=== PATIENT | male | born 1940 | race Caucasian/White ===

== ENCOUNTER 2018-04-29 19:10 | Inpatient (IN) | payer MEDICARE, BC ==
[~2018-04-29] VITALS: Ht 175.3 cm; Wt 82.2 kg
[~2018-04-29 19:10] MED LIST: ALBU8.5H8 INH; ASPI-1265 PO; ATOR40TA PO; BECL7.3A INH; CYAN100097 PO; FERR325T32 PO; IPRA3AMP9 NEB; MAGN400C PO; MONT10TA21 PO; SPIIN INH; UBID1CAP54 PO; VALS160T2 PO; VERA240C2 PO
[2018-04-29 19:56] LABS: BASOPHILS % (AUTO) 0.1 % (0-1); EOSINOPHILS # (AUTO) 0.2 X10'3 (0-0.9); EOSINOPHILS % (AUTO) 2.6 % (0-6); HEMOGLOBIN 8.9 g/dl (14.0-17.9); LYMPHOCYTES # (AUTO) 0.6 X10'3 (1.1-4.8); LYMPHOCYTES % (AUTO) 6.5 % (21-51); MEAN CORPUSCULAR HGB CONC 34.4 % (33.0-36.5); MEAN CORPUSCULAR VOLUME 92.9 FL (78-98); MONOCYTES # (AUTO) 0.8 X10'3 (0-0.9); MONOCYTES % (AUTO) 8.8 % (2-12); NEUTROPHILS # (AUTO) 7.1 X10'3 (1.8-7.7); PLATELET COUNT 143 X10'3 (140-440); RED BLOOD COUNT 2.79 X10'6 (4.70-6.10); RED CELL DISTRIBUTION WIDTH 15.4 % (11.5-14.5); WHITE BLOOD COUNT 8.6 X10'3 (4.5-11.0)
[2018-04-29 20:09] LABS: ALANINE AMINOTRANSFERASE 23 U/L (12-78); ALBUMIN 3.4 G/DL (3.4-5.0); ALKALINE PHOSPHATASE 77 IU/L (46-116); ANION GAP 14 (8-16); ASPARTATE AMINO TRANSFERASE 30 U/L (10-37); BILIRUBIN,TOTAL 1.7 MG/DL (0.1-1.0); BLOOD UREA NITROGEN 38 MG/DL (7-18); BUN/CREATININE RATIO 18.8 (5.4-32.0); CALCIUM 8.1 MG/DL (8.5-10.1); CHLORIDE 96 MMOL/L (99-107); CREATININE 2.02 MG/DL (0.60-1.10); GLUCOSE 115 MG/DL (70-104); POTASSIUM 4.8 MMOL/L (3.5-5.1); SODIUM 133 MMOL/L (135-145); TOTAL CARBON DIOXIDE 22.9 MMOL/L (24-32); TOTAL PROTEIN 6.7 G/DL (6.4-8.2); eGFR 32 ML/MIN
[2018-04-29] MEDS ORDERED: LIDOcaine 2% 10ml TOPICAL JELLY (Urojet) MM ONE (20:15)
[2018-04-29 20:19] LABS: PARTIAL THROMBOPLASTIN TIME 26 SECONDS (22-32); PROTHROMBIN TIME 10.6 SECONDS (9.0-12.0)
[2018-04-29] MEDS ORDERED: methylPREDNISolone sod succ 125mg/2ml vial IV ONE (20:20)
[2018-04-29] MEDS ORDERED: ipratropium/albuterol 3ml nebule NEB ONE (20:20)
[2018-04-29] MEDS ORDERED: normal saline 1000ML IV soln IVB ONE ×2 (20:20)
[2018-04-29] MEDS ORDERED: levoFLOXACIN-Levaquin 750MG/D5 150 ML IV STA (20:20)
[2018-04-29 20:52] LABS: TROPONIN I < 0.04 NG/ML (0.0-0.05)
[2018-04-29] MEDS ORDERED: temazepam 15mg capsule PO PRN (21:00)
[2018-04-29 21:19] LABS: CLARITY,URINE CLEAR (Clear); COLOR,URINE YELLOW (Yellow); GLUCOSE, URINE NEGATIVE (Neg); KETONES,URINE TRACE mg/dl (Neg); LEUKOCYTE ESTERASE ,URINE NEGATIVE (Neg); NITRITES, URINE NEGATIVE (Neg); OCCULT BLOOD,URINE NEGATIVE (Neg); PH,URINE 5.5 (4.8-8.0); PROTEIN,URINE NEGATIVE (Neg); UROBILINOGEN,URINE 0.2 E.U/dL (0.2-1.0)
[2018-04-29] MEDS ORDERED: albuterol 2.5 mg/0.5ml nebule NEB ONE (21:20)
[2018-04-29 21:22] LABS: UA COLLECTION TYPE FOLEY CATH
[2018-04-29] MEDS ORDERED: albuterol 2.5 MG/3 ML nebule NEB ONE (22:00)
[2018-04-29] MEDS ORDERED: magnesium hydroxide 30ml (MOM) UD suspension PO PRN (22:50)
[2018-04-29] MEDS ORDERED: ondansetron/PF 4mg/2ml inj IV PRN (22:50)
[2018-04-29] MEDS ORDERED: albuterol 2.5 MG/3 ML nebule NEB PRN (22:50)
[2018-04-29] MEDS ORDERED: HYDROcodone/acetaminophen 5mg/325mg tablet PO PRN (22:50)
[2018-04-29] MEDS ORDERED: mag hydrox/Alum hydrox/simeth 30ml oral suspension PO PRN (22:50)
[2018-04-29] MEDS ORDERED: acetaminophen 325mg tablet PO PRN ×2 (22:50)
[2018-04-29] MEDS: HYDROcodone/acetaminophen 10/325mg tab PO PRN (23:09)
[2018-04-29] MEDS: normal saline 1000ml 1,000 ML IV SCH (23:12)
--- NOTE | 2018-04-29 23:53 | NUR ---
Informed ER MD patient had mckoy cathiter placed. Verbal order maintain mckoy per protocol.
--- NOTE | 2018-04-30 01:32 | NUR ---
Patient transfered to hospital bed.
--- NOTE | 2018-04-30 01:33 | NUR ---
pt placed on hospital bed. awaiting ipa. RT at bedside now , pt getting svn now. stable vs, afebrile. pt is polite and cooperative with all care. has gone home for the night.
[2018-04-30] MEDS: ipratropium/albuterol 3ml nebule NEB SCH ×6 (02:56→23:23)
--- NOTE | 2018-04-30 06:57 | NUR ---
Patient in room ED 12. I have received report from OPEN END SPINNING OPERATOR and had the opportunity to ask questions and assume patient care. Awaiting patient
[2018-04-30 07:15] VITALS: BP 126/60
--- NOTE | 2018-04-30 07:15 | NUR ---
Patient arrived to floor.
[2018-04-30] MEDS: normal saline 1000ml 1,000 ML IV SCH ×2 (08:15→17:15)
[2018-04-30] MEDS: enoxaparin 40mg/0.4ml syringe SUBCUT SCH (08:15)
[2018-04-30 09:42] LABS: BASOPHILS % (AUTO) 0 % (0-1); EOSINOPHILS % (AUTO) 0.8 % (0-6); HEMATOCRIT 25.4 % (42.0-52.0); HEMOGLOBIN 8.9 g/dl (14.0-17.9); LYMPHOCYTES # (AUTO) 0.2 X10'3 (1.1-4.8); LYMPHOCYTES % (AUTO) 3.2 % (21-51); MEAN CORPUSCULAR HEMOGLOBIN 32.8 PG (27.0-31.0); MEAN CORPUSCULAR HGB CONC 34.9 % (33.0-36.5); MEAN PLATELET VOLUME 7.9 FL (7.4-10.4); MONOCYTES # (AUTO) 0.2 X10'3 (0-0.9); MONOCYTES % (AUTO) 3.6 % (2-12); NEUTROPHILS # (AUTO) 5.6 X10'3 (1.8-7.7); NEUTROPHILS % (AUTO) 92.4 % (42-75); PLATELET COUNT 112 X10'3 (140-440); RED CELL DISTRIBUTION WIDTH 15.2 % (11.5-14.5); WHITE BLOOD COUNT 6.1 X10'3 (4.5-11.0)
[2018-04-30] MEDS ORDERED: HYDR-3972 PO (09:46)
[2018-04-30 09:50] LABS: ALBUMIN 3.2 G/DL (3.4-5.0); ANION GAP 9 (8-16); BLOOD UREA NITROGEN 27 MG/DL (7-18); BUN/CREATININE RATIO 19.4 (5.4-32.0); CALCIUM 8.2 MG/DL (8.5-10.1); CHLORIDE 104 MMOL/L (99-107); CREATININE 1.39 MG/DL (0.60-1.10); POTASSIUM 4.4 MMOL/L (3.5-5.1); SODIUM 139 MMOL/L (135-145); TOTAL CARBON DIOXIDE 25.8 MMOL/L (24-32); eGFR 50 ML/MIN
[2018-04-30 10:36] LABS: GLUCOSE 124 MG/DL (70-104)
[2018-04-30 11:22] VITALS: BP 109/58
[2018-04-30] MEDS: HYDROcodone/acetaminophen 10/325mg tab PO PRN ×2 (15:30→19:44)
--- NOTE | 2018-04-30 15:42 | NUR ---
Ruiz removed per MD order.
--- NOTE | 2018-04-30 17:11 | NUR ---
patient o2 sat 91 on RA. walked patient to hallway and back, patient dropped to 82%. patient recovered to 90% on room air when resting and up to 94%with 1L o2. Dr. Wright notified.
[2018-04-30] MEDS ORDERED: predniSONE 20 mg tablet PO ONE (17:25)
--- NOTE | 2018-04-30 18:25 | NUR ---
Problems reprioritized. Patient report given, questions answered & plan of care reviewed with JUAN Paulino.
--- NOTE | 2018-04-30 18:26 | NUR ---
Patient in room [facility]. I have received report from ERICK MARTINEZ and had the opportunity to ask questions and assume patient care.
[2018-04-30 19:00] VITALS: BP 113/60
[2018-05-01] VITALS: BP 123/67
[2018-05-01] MEDS: ipratropium/albuterol 3ml nebule NEB SCH ×3 (03:01→11:50)
[2018-05-01 06:02] LABS: BASOPHILS % (AUTO) 0 % (0-1); EOSINOPHILS # (AUTO) 0.1 X10'3 (0-0.9); EOSINOPHILS % (AUTO) 0.7 % (0-6); HEMATOCRIT 22.8 % (42.0-52.0); HEMOGLOBIN 7.9 g/dl (14.0-17.9); LYMPHOCYTES # (AUTO) 0.4 X10'3 (1.1-4.8); LYMPHOCYTES % (AUTO) 6.3 % (21-51); MEAN CORPUSCULAR HEMOGLOBIN 32.8 PG (27.0-31.0); MEAN CORPUSCULAR HGB CONC 34.7 % (33.0-36.5); MEAN CORPUSCULAR VOLUME 94.5 FL (78-98); MEAN PLATELET VOLUME 8.1 FL (7.4-10.4); MONOCYTES # (AUTO) 0.5 X10'3 (0-0.9); MONOCYTES % (AUTO) 7.7 % (2-12); NEUTROPHILS # (AUTO) 5.9 X10'3 (1.8-7.7); NEUTROPHILS % (AUTO) 85.3 % (42-75); PLATELET COUNT 111 X10'3 (140-440); RED BLOOD COUNT 2.41 X10'6 (4.70-6.10); RED CELL DISTRIBUTION WIDTH 15.2 % (11.5-14.5); WHITE BLOOD COUNT 6.9 X10'3 (4.5-11.0)
[2018-05-01 06:03] LABS: ANION GAP 8 (8-16); BLOOD UREA NITROGEN 24 MG/DL (7-18); BUN/CREATININE RATIO 21.2 (5.4-32.0); CALCIUM 8.3 MG/DL (8.5-10.1); CHLORIDE 104 MMOL/L (99-107); CREATININE 1.13 MG/DL (0.60-1.10); GLUCOSE 108 MG/DL (70-104); SODIUM 139 MMOL/L (135-145); TOTAL CARBON DIOXIDE 26.9 MMOL/L (24-32); eGFR 63 ML/MIN
--- NOTE | 2018-05-01 06:32 | NUR ---
Problems reprioritized. Patient report given, questions answered & plan of care reviewed with GREGORY MARTINEZ.
[2018-05-01 07:00] VITALS: BP 159/69
--- NOTE | 2018-05-01 07:10 | NUR ---
RECEIVED REPORT FROM BILLY MARTINEZ
[2018-05-01] MEDS ORDERED: predniSONE 20 mg tablet PO SCH (08:00)
[2018-05-01] MEDS: enoxaparin 40mg/0.4ml syringe SUBCUT SCH (08:06)
--- NOTE | 2018-05-01 10:54 | NUR ---
Dr. Greene stated pt is ok for discharge from surgical standpoint.
[2018-05-01 11:00] VITALS: BP 163/82
[2018-05-01] MEDS ORDERED: ipratropium/albuterol 3ml nebule NEB PRN (12:30)
[2018-05-01] MEDS ORDERED: non-formulary drug (Albuterol Sulfate (Proair Hfa) 2 PUFFS) INH PRN (12:30)
[2018-05-01] MEDS ORDERED: HYDROcodone/acetaminophen 10/325mg tab PO PRN (12:30)
[2018-05-01] MEDS ORDERED: PRED10TA23 PO (12:39)
[2018-05-01] MEDS ORDERED: LEVO500T2 PO (12:39)
[2018-05-01] MEDS ORDERED: verapamil SR 120mg (sust. release) tab PO ONE (12:40)
--- NOTE | 2018-05-01 12:59 | NUR ---
Mandy consult: Patient's documented PO intake 25% on 04/30, however noted that current documented intake is 75% on regular diet meeting nutrient needs. Pt with no documented significant decrease in muscle strength or edema. Pt currently does not meet criteria for malnutrition. Will continue to follow. Addendum: 05/01/18 at [address] Amended: Links added.
[2018-05-01] MEDS ORDERED: levoFLOXACIN 500mg tablet PO SCH (20:00)
[2018-05-01] MEDS ORDERED: BUDESONIDE 0.25 MG/2 ML AMPUL.NEB IH SCH (20:00)
[2018-05-01] MEDS ORDERED: aspirin 81mg tab.chew PO SCH (21:00)
[2018-05-02] MEDS ORDERED: atorvastatin 10mg tablet PO SCH (08:00)
[2018-05-02] MEDS ORDERED: non-formulary drug (Ubidecarenone/Vit E Acetate (Co Q-10 100 Mg Softgel) 1 EACH) PO SCH (08:00)
[2018-05-02] MEDS ORDERED: non-formulary drug (Tiotropium Bromide (SPIRIVA inhaler) 1 CAP) INH SCH (08:00)
[2018-05-02] MEDS ORDERED: montelukast 10mg tablet PO SCH (08:00)
[2018-05-02] MEDS ORDERED: magnesium oxide 400mg tablet PO SCH (08:00)
[2018-05-02] MEDS ORDERED: cyanocobalamin 500mcg tablet PO SCH (08:00)
[2018-05-02] MEDS ORDERED: losartan 50mg tablet PO SCH (08:00)
[2018-05-02] MEDS ORDERED: verapamil SR 120mg (sust. release) tab PO SCH (21:00)
== END 2018-05-01 14:08 | disposition home or self-care (01) | DRG 683 ==
LOC: ER 19:10 → ED HOLD 22:49 → EDBEDREQDT 04-30 07:12 → SUR 3N 04-30 07:20
PROVIDERS: ADMIT Hospitalist; ATTEND Internal Medicine
DX: N17.9 Acute kidney failure, unspecified (principal); J44.1 Chronic obstructive pulmonary disease with (acute) exacerbation; E87.1 Hypo-osmolality and hyponatremia; E86.0 Dehydration; N28.9 Disorder of kidney and ureter, unspecified; R33.9 Retention of urine, unspecified; Z80.3 Family history of malignant neoplasm of breast; Z86.73 Personal history of transient ischemic attack (TIA), and cerebral infarction without residual deficits; Z88.8 Allergy status to other drugs, medicaments and biological substances; Z79.899 Other long term (current) drug therapy; Z82.3 Family history of stroke; Z82.49 Family history of ischemic heart disease and other diseases of the circulatory system
CPT/HCPCS: 36415; 71045; 80048; 80053; 81003; 83605; 83880; 84145; 84484; 85025; 85610; 85730; 87040; 87070; 93005; 94640; 94760; 96365; 96366; 96375; 99285; G0378; J1650; J1956; J2930; J7030; J7512; J7611

== ENCOUNTER 2018-06-03 12:42 | Inpatient (IN) | payer MEDICARE, BC | END 2018-06-14 17:20 | LOC: ER 12:42 → PCU 3S 06-04 09:55 → ED HOLD 16:36 | DX: J18.9 Pneumonia, unspecified organism (principal); J96.00 Acute respiratory failure, unspecified whether with hypoxia or hypercapnia; J44.1 Chronic obstructive pulmonary disease with (acute) exacerbation; E87.2 Acidosis; E87.6 Hypokalemia; D69.6 Thrombocytopenia, unspecified; F10.20 Alcohol dependence, uncomplicated ==